=== PATIENT | female | born 1955 | race Caucasian/White ===

== ENCOUNTER 2016-12-31 20:24 | Emergency (ER) | payer BC ==
[2016-12-31 22:00] VITALS: BP 138/88
== END 2016-12-31 22:00 | disposition home or self-care (01) ==
LOC: ED 20:24
DX: J06.9 Acute upper respiratory infection, unspecified (principal); R11.2 Nausea with vomiting, unspecified
CPT/HCPCS: Q0162

== ENCOUNTER 2018-08-22 08:15 | Inpatient (IN) | payer BC ==
[~2018-08-22] VITALS: Ht 165.1 cm; Wt 108.1 kg
--- NOTE | 2018-08-22 08:46 | NUR ---
PT CAME TO THE ED TODAY WITH CO DIZZINESS AND N/V SINCE 0615 THIS AM. PT STATES ABOUT 0430 THIS AM SHE LET HER DOG OUTSIDE AND WAS FEELING FINE THEN AT 0615 SHE GOT UP DUE TO FEELING DIZZY, STATES SHE WENT TO WASH HER FACE AND IT BECAME WORSE AND IS NOW HAVING N/V. PT STATES THAT SHE HAD AN EPISODE OF CHEST TIGHTNESS THAT LASTED APROX 1 MIN AND WAS NON RADIATING. AT THIS TIME PT DENIES ANY CHEST PAIN. PT IS AWAKE AND ALERT. EKG DONE AT BEDSIDE. PT IS HOOKED UP TO FULL MONITORS, SIDE RAILS UP, CALL LIGHT IN REACH, WILL CONTINUE TO MONITOR.
--- NOTE | 2018-08-22 09:02 | NUR ---
DR GENAO AT BEDSIDE FOR MSE
[2018-08-22 09:16] LABS: BASOPHIL % 0.6 % (0-2); PLATELET COUNT 222 x10^3mcL (130-400); RED CELL DISTRIBUTION WIDTH 12.3 % (11.5-14.5)
[2018-08-22 09:26] LABS: CALCIUM 8.9 mg/dL (8.5-10.1); CARBON DIOXIDE 24.2 mmol/L (21-32); CHLORIDE SERUM 108 mmol/L (98-107); CREATININE SERUM 0.9 mg/dL (0.6-1.0); GFR1 > 60 mL/min; GLUCOSE SERUM 134 mg/dL (74-106); SODIUM SERUM 146 mmol/L (136-145)
[2018-08-22 09:30] LABS: ALKALINE PHOSPHATASE 111 U/L (46-116); ALT/SGPT 22 U/L (14-59); AST/SGOT 16 U/L (15-37); BILIRUBIN TOTAL 0.44 mg/dL (0.20-1.00); TOTAL PROTEIN, SERUM 6.9 g/dL (6.4-8.2)
[2018-08-22 09:42] LABS: ALBUMIN 3.3 g/dL (3.4-5.0)
--- NOTE | 2018-08-22 10:36 | NUR ---
PT STATES THE NAUSEA HAS GONE AWAY, BUT SHE IS STILL FEELING DIZZY. PT REMAINS AWAKE AND ALERT. BREATHING EVEN AND UNLABORED. CONTINUES TO BE HOOKE DUP TO FULL MONITORS, WILL CONTINUE TO MONITOR
--- NOTE | 2018-08-22 11:09 | NUR ---
ROAD TESTED PATIENT. PT AMBULATED WITH STEADY GAIT. STATES SHE IS FEELING BETTER, BUT STILL A LITTLE DIZZY
--- NOTE | 2018-08-22 14:03 | NUR ---
PT EDUCATED ON MEDICATION PER EMAR; VERBALIZED UNDERSTANDING. MEDICATED AND TOLERATED WELL. REMAINS CONNECTED TO MONITOR; CALL LIGHT IS WITHIN REACH.
--- NOTE | 2018-08-22 15:09 | NUR ---
REPORT GIVEN TO AVIVA ALEMAN ON MS FOR FURTHER CARE OF PT
[2018-08-22 15:21] LABS: CHOLESTEROL/HDL RATIO 4.4; PHOSPHOROUS 1.5 mg/dL (2.5-4.9)
--- NOTE | 2018-08-22 15:25 | NUR ---
RECEIVED PT FROM ED [facility], CAME IN DUE TO VOMITING AND DIZZINESS. AAOX4. C/O DIZZINESS ON MOVEMENT, ABLE TO FOLLOW COMMANDS. NO SOB NOTED, LUNG SOUNDS CTA. DENIES CHEST PAIN/PRESSURE. DENIES ABDOMINAL PAIN, NAUSEA, VOMITING AT THIS TIME. ABDOMEN IS SOFT AND ROUND. BOWEL SOUNDS ACTIVE. VOIDS. IV SITE ON THE LEFT HAND IS PATENT AND INTACT. SIDE RAILS UPX2. CALL LIGHT ON REACH. HOB ELEVATED AT [address] BRENNER AT BEDSIDE AND DISCUSSED THE PLAN OF CARE, PT VERBALIZES UNDERSTANDING. PRIMARY NURSE LITTLE AT BEDSIDE FOR CONTINUITY OF CARE
[2018-08-22 15:33] LABS: FREE T4 1.07 ng/dL (0.76-1.46); FREE THYROXINE INDEX 2.7 ug/dL (1.4-4.5)
[2018-08-22 15:47] LABS: T3 TOTAL 1.37 ng/mL
[2018-08-22 15:50] VITALS: BP 145/71
[2018-08-22 15:59] VITALS: Ht 165.1 cm; Wt 108.1 kg
[2018-08-22 18:37] LABS: microscopic required? NO; urine erythrocyte NEGATIVE (NEGATIVE)
--- NOTE | 2018-08-22 18:49 | NUR ---
PT RESTING IN BED. HAD 200 ML VOMITUS AFTER EATING BROTH AND JELLO. GIVEN ICE CHIPS REQUESTED. IVF INFUSING, NO REDNESS OR SWELLING TO IV SITE. FAMILY AT BEDSIDE. FALL PRECAUTIONS. BED IN LOW POSITION, CALL LIGHT WITHIN REACH. WILL ENDORSE TO ONCOMING SHIFT.
--- NOTE | 2018-08-22 19:00 | NUR ---
RECEIVED REPORT FROM AVIVA ALEMAN. ALL QUESTIONS ANSWERED AND ADDRESSED. WILL RESUME CARE OF PT.
--- NOTE | 2018-08-22 19:00 | NUR ---
RECEIVED PT AWAKE AND ALERT X4. ABLE TO FOLLOW COMMANDS. LETHARGIC. PERRL. DENIES HEADACHE, SOB, OR CP AT THIS TIME. TRACHEA MIDLINE. NO JVD PRESENT. ON ROOM AIR. BREATHING E/U. NO SIGNS OF RESP DISTRESS NOTED. ABD IS SOFT AND ROUNDED. DENIES N/V OR ABD PAIN AT THIS TIME. SKIN IS WARM/DRY TO TOUCH, COLOR IS CONSISTENT WITH ETHNICITY. NO EDEMA NOTED. L HAND PIV INTACT, PORT PATENT, DRESSING CDI. NS INFUSING @ 100 ML/HR. SCD TO BLE NOTED. ABLE TO TURN AND REPOSITION SELF. AMBULATORY BUT WITH ASSIST. X3 SIDE RAILS UP, BED IN LOWEST POSITION, CALL LIGHT WITHIN REACH. FAMILY AT BEDSIDE.
[2018-08-22 20:10] VITALS: BP 142/80
--- NOTE | 2018-08-22 22:53 | NUR ---
HELPED PT AMBULATE TO RESTROOM. ABLE TO WALK WITH STEADY GAIT, DENIES VERTIGO. PT SAFELY RETURNED BACK TO BED WITH NO PROBLEMS. 300CC OF URINE NOTED.
--- NOTE | 2018-08-23 01:41 | NUR ---
PT RESTING AND COMFORTABLE. BREATHING E/U. NO SIGNS OF RESP DISTRESS NOTED. PIV TO L HAND INTACT, PORT PATENT, DRESSING CDI. NS REMAINS INFUSING @ 100 ML/HR. WILL CONT TO MONITOR.
--- NOTE | 2018-08-23 03:04 | NUR ---
ASSISTED PT TO THE RESTROOM. PT ABLE TO WALK WITH STEADY GAIT. NO DIZZINESS OR VERTIGO STATED. PT URINATED 400CC OF YELLOW URINE. STILL NO BM AT THIS TIME. PT ASSISTED SAFELY BACK TO BED AT THIS TIME. TURNED AND POSITIONED PER PT'S COMFORT.
[2018-08-23 05:02] VITALS: BP 140/69
--- NOTE | 2018-08-23 05:40 | NUR ---
ASSISTED PT TO RESTROOM. GAIT STEADY. DENIES ABD PAIN, N/V, OR VERTIGO. 150CC OF URINE OUT. PT BACK IN BED WITH NO COMPLICATIONS. BREATHING E/U. NO SIGNS OF RESP DISTRESS NOTED. SKIN WARM/DRY TO TOUCH, COLOR CONSISTENT WITH ETHNICITY. PIV TO L HAND INTACT, PORT PATENT, DRESSING CDI. NS INFUSING @ 100 ML/HR. NO S/S OF INFILTRATION. BED IN LOWEST POSITION, X3 SIDE RAILS UP, HOB ELEVATED PER PT'S COMFORT, CALL LIGHT WITHIN REACH. WILL ENDORSE CARE TO ONCOMING RN.
[2018-08-23 06:37] LABS: BASOPHIL % 0.2 % (0-2); PLATELET COUNT 198 x10^3mcL (130-400); RED CELL DISTRIBUTION WIDTH 12.9 % (11.5-14.5)
[2018-08-23 06:38] LABS: CALCIUM 8.8 mg/dL (8.5-10.1); CARBON DIOXIDE 23.4 mmol/L (21-32); CHLORIDE SERUM 112 mmol/L (98-107); CREATININE SERUM 0.7 mg/dL (0.6-1.0); GFR1 > 60 mL/min; GLUCOSE SERUM 90 mg/dL (74-106); MAGNESIUM 2.1 mg/dL (1.8-2.4); PHOSPHOROUS 2.8 mg/dL (2.5-4.9); POTASSIUM SERUM 3.5 mmol/L (3.5-5.1); SODIUM SERUM 147 mmol/L (136-145)
--- NOTE | 2018-08-23 07:20 | NUR ---
SEEN WALKING BACK FROM BATHROOM STATED STILL FEEL SOME DIZZINESS. AAOX4. BREATHING E/U ON ROOM AIR. ABD SOFT AND ROUND. ON FULL LIQUID DIET. DENIES NAUSEA OR ABDN PAIN AT THIS TIME. PATIENT PREFERS GLUTEN FREE&DAIRY FREE DIET. IVF NS TO LT HAND INFUSING WELL AT 100ML/HR. PLAN OF CARE DISCUSSED. CALL LIGHT PLACED WITHIN EASY REACH, SIDERAILS UP X2.
--- NOTE | 2018-08-23 08:02 | NUR ---
ZOFRAN 4MG IVP GIVEN FOR NAUSEA AND TYLENOL PO GIVEN FOR HEADACHE AT THIS TIME. WILL CONTINUE TO MONITOR.
[2018-08-23 08:04] VITALS: BP 143/73
--- NOTE | 2018-08-23 10:00 | NUR ---
DOCTOR LUCHO AND MEDICAL TEAM AT BEDSIDE FOR AM ROUND. CUURENT CONDITION UPDATED. PATIENT MADE AWARE PLAN OF CARE.
[2018-08-23 11:55] VITALS: BP 147/80
[2018-08-23] MEDS ORDERED: MECLIZINE HYDRO25 M1 PO (13:30)
[2018-08-23] MEDS ORDERED: MUCINEX600 MG PO (13:31)
[2018-08-23] MEDS ORDERED: ZOF4 PO (13:31)
[2018-08-23 13:39] VITALS: BP 147/80
--- NOTE | 2018-08-23 14:17 | NUR ---
DISCHARGE INSTRUCTION AND PRESCRIPTION EXPLAINED AND GIVEN TO PATIENT WHO IS AWAKE, ALERT, ORIENTED X4. S/L TO LT HAND REMOVED WITH CATHETER INTACT, DRSG APPLIED. PERSONAL BELONGING CHECKED AND KEPT WITH PATIENT. BROUGHT VIA WHEELCHAIR ACCOMPANIED BY PATIENT'S SPOUSE. CONDITION STABLE UPON DISCHARGE.
== END 2018-08-23 14:03 | disposition home or self-care (01) | DRG 392 ==
LOC: ED 08:15 → MU 14:23
PROVIDERS: Emergency Medicine; ADMIT Internal Medicine
DX: K52.9 Noninfective gastroenteritis and colitis, unspecified (principal); E44.0 Moderate protein-calorie malnutrition; Z68.1 Body mass index [BMI] 19.9 or less, adult; H83.09 Labyrinthitis, unspecified ear; E78.5 Hyperlipidemia, unspecified; E83.39 Other disorders of phosphorus metabolism; K21.9 Gastro-esophageal reflux disease without esophagitis; Z72.89 Other problems related to lifestyle; Z85.038 Personal history of other malignant neoplasm of large intestine; Z90.49 Acquired absence of other specified parts of digestive tract; Z90.710 Acquired absence of both cervix and uterus
CPT/HCPCS: 84439; 87046; 87046-59; G0378; J2060; J2405; J7030; J8597; Q0092